=== PATIENT | male | born 1990 ===

== ENCOUNTER 2021-11-16 08:15 | Outpatient (RCR) | payer OTHER, SELFPAY ==
[2021-11-09 12:29] VITALS: BMI 20.7
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
--- NOTE | 2021-11-12 14:59 | PC.NURSE ---
Case opened in treatment team
--- NOTE | 2021-11-14 09:47 | PC.NURSE ---
I called outsole caser and made appointments for outpatient providers
--- NOTE | 2021-11-14 14:22 | P.PNPSP_ITS ---
Subjective Subjective Date of Service: 11/14/21 Reason For Visit: MDD, substance use Guardianship: No Medical Problems Affecting Mental Status: No Interim History: Patient describes mood as ?elated ?. States has had a good morning, received positive news regarding a friends substance use recovery. Denies any SI/HI, no safety concern. Reports continued abstinence for over 1 month at this point. Reports the increased Wellbutrin is helping to lift depression symptoms. Complains of sexual side effects from medications. Medication Compliance: Yes Side effects from medications: Yes (ED, constipation) Attending Groups: Yes Review of Systems Acute medical concerns: No Medical Review of Systems: changed Review of Systems Review of Systems Yes all other systems are reviewed and are negative Constitutional: Reports no additional constitutional complaints Eyes: Reports no additional eye complaints Reports Normal hearing present Cardiovascular: Reports no additional cardiovascular complaints Respiratory: Reports no additional respiratory complaints Gastrointestinal: Reports constipation Genitourinary: Reports no additional male genitourinary complaints and Reports change in libido (lowered libido and ED) Musculoskeletal: Reports no additional musculoskeletal complaints Reports Normal hearing present Psychiatric: Reports change in libido (lowered libido and ED) Endocrine: Reports change in libido (lowered libido and ED) Mental Status Exam Mental Status Exam Narrative: Well-developed, thin male, in NAD. Did not appear to be responding to any type of internal stimuli. Passive SI, no intent or plan. Did not appear to be under the influence of any substances, no withdrawals reported or observed. Patient Appearance: Well Grooomed and Appropriate Patient Orientation: Person, Place, Time and Situation Level of Consciousness: Awake, Appropriate and Alert Patient Behavior: Appropriate, Cooperative and Good Eye Contact Mood Description: Happy and Elated Affect Description: Anxious Patient Cognition Impaired: No Ability to Follow Directions: Excellent Speech Pattern: Clear, Appropriate and Coherent Memory Description: Intact Hallucinations: None Delusions: Not Present Thought Process: Intact Thought Content: positive for Intact Depressive Symptoms: Increased Anxiety, Muscle Tension, Feelings of Guilt, Increased Fatigue and Low Self Esteem Judgement: Fair Diagnostics Vital Signs (24Hr): BMI result Body Mass Index 20.7 Assessment & Plan Assessment & Plan (1) Major depressive disorder, recurrent, severe with psychotic symptoms: Status: Acute Code(s): F33.3 - Major depressive disorder, recurrent, severe with psychotic symptoms Assessment and Plan: Patient reports feeling ?elevated mood ?today. He states he is in no way manic or hypomanic, but it is due to receiving information this morning that a close friend of his has been sober for the past 5 months. He describes his emotions as ?trying to even out ?. He states that he feels his mood is improving, in part due to the increased Wellbutrin. He states that he was depressed for over a month, and that he is finally starting to feel his depression is lifting. Denies any thought of harm to self or others, no safety concerns at this time. Discussed medications in depth, including side effects, risks and benefits of each medication. Patient is requesting to stay on current doses of all psychiatric medications, but would like something to help with erectile dysfunction at this time. He also reports that the medications are causing constipation, requesting stool softener. Plan is to trial tadalafil and colace over next week, and monitor for efficacy as well as side effects. (2) Alcohol use disorder, severe, dependence: Status: Acute Code(s): F10.20 - Alcohol dependence, uncomplicated Assessment and Plan: Patient reports he has been abstinent from alcohol and all other substances for over 1 month at this time. (3) Opioid use disorder, severe, dependence: Status: Acute Code(s): F11.20 - Opioid dependence, uncomplicated (4) Cocaine use disorder, severe, dependence: Status: Acute Code(s): F14.20 - Cocaine dependence, uncomplicated (5) Methamphetamine use disorder, severe: Status: Acute Code(s): F15.20 - Other stimulant dependence, uncomplicated Plan 1. Continue with current [facility] plan of care. 2. tadalafil 5mg, 5 tab supply ordered. 3. Colace 100 mg daily ordered. 4. Continue all other medications as prescribed currently. 5. Follow-up as per protocol. Patient educated on: diagnosis, medication risk/benefits, substance abuse, therapeutic strategies and medical condition Informed Consent: understands Reason for contiued partial hosp. stay Substantial Risk for: harm to self, inability to function and med/psych decompensation Certification I certify that partial hospital treatment is medically necessary due to the symptoms and problems resulting from the patient's mental illness and the failure to treat the patient at the partial hospital level of care would likely result in the patient requiring inpatient psychiatric care which could not be prevented at a less intensive level of care. I spent ___30___ minutes with the patient and/or on the patient floor today, greater than?50% of which was spent counseling/coordinating care. Discharge Plan Discharge Attending provider: Rogerio Reyes Additional Instructions: Intake appointment for therapist and prescriber at [facility] with Blanka 11/27/21 @ 10 am Medications: New bupropion HCl [Wellbutrin XL] 300 mg tablet extended release 24 hr 300 mg PO QAM 14 Days Qty: 14 0RF docusate sodium [Colace] 100 mg capsule 100 mg PO DAILY 7 Days Qty: 7 0RF tadalafil 5 mg tablet 5 mg PO DAILY MDD 5mg PRN (Reason: sexual activity) Qty: 5 0RF Rx Instructions: administer approximately 30min before sexual activity; do not use more than 1 dose per 24hrs Discontinued bupropion HCl 150 mg Tablet Extended Release 24 Hr 150 mg PO QAM 0RF No Action hydroxyzine HCl 50 mg Tablet 50 mg PO DAILY PRN (Reason: Anxiety) 0RF nicotine 21 mg/24 hr Patch 24 Hour 1 patch TRANSDERMAL DAILY 0RF prazosin 2 mg Capsule 2 mg PO BEDTIME 0RF emtricitabine-tenofovir (TDF) 200-300 mg Tablet 1 tab PO DAILY 0RF quetiapine 50 mg Tablet 50 mg PO BEDTIME PRN (Reason: Insomnia) 0RF melatonin 5 mg Tablet 5 mg PO BEDTIME 0RF baclofen 5 mg Tablet 5 mg PO BID PRN (Reason: Muscle Spasm) 0RF Stand Alone Forms: Patient Portal Discharge page Telehealth Telehealth Location of provider rendering services: practice address Location of patient: address on file Patient Identification confirmed using: Name, : Yes Telehealth method: video Patient verbally consented to treatment: Yes Patient informed of any privacy concerns related to visit: Yes Time spent with patient (mins): 20
--- NOTE | 2021-11-15 13:14 | PC.NURSE ---
Patient asking for staff assistance in finding a PCP. Called [facility] and was told that patient is already in the system as he had an appointment with Dr Lopez in June however patient missed the appointment. Dr Lopez is listed as patient's PCP on his insurance as well. Appointment made with Dr Lopez from [facility] on December 27, 2021 at 0830. See discharge paperwork. Informed patient of the appointment. Patient wrote down the information however patient reports he would like an earlier appointment and will call [facility] to try and get an earlier appointment.
--- NOTE | 2021-11-15 13:17 | PC.NURSE ---
I called the client to assess need for crisis intervention because he shared that he was experiencing suicidal thoughts. During our phone conversation he explained that he often has suicidal thoughts on his down days although he does not have a plan or intent. We reviewed his written safety plan and he denied any thoughts while we were talking. He states that he will keep to his plan for structure today . His plan is to take a nap after group, then shower, eat, go to [facility] to get his prescription and then he will work from 5-10. He states that he enjoys work and often feels better after work. He has the number for crisis and states that he will call if needed although he states that he will be safe.
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
--- NOTE | 2021-11-19 14:21 | PC.NURSE ---
I called the client . When he did not answer I called his mother, Cici Lanza to request that Cornelio give me a call. She did not answer either and I left a message.
--- NOTE | 2021-11-19 14:43 | PC.NURSE ---
I called and spoke with the client about going to the lab for blood work. He said okay and I told him that I would call right back once I made sure the lab slip was faxed to the lab. When I called back he did not answer his phone and I called his mother she said she would have him call me. When he did not call back, I again called and left a message on his mothers phone for him to call.
--- NOTE | 2021-11-20 09:21 | PC.NURSE ---
I phoned the clients mother this morning when the client did not come to community meeting. She states that the client can not participate in group because his phone is broken and he is going to get it fixed today She states that he will be in tomorrow
--- NOTE | 2021-11-21 14:53 | PC.NURSE ---
I spoke with the clients mother Cici ruiz to relay message to client to remind him of the intake appointment set for November and number to call if he needs to change time.
--- NOTE | 2021-12-04 11:11 | PC.NURSE ---
Patient administratively discharged from the program on 11/16/21. Patient called and left a message on 12/04/21 asking for prescription refills. Stated his phone broke and he did not have access to the internet. Myrna Bosch NP is aware, patient message also forwarded to Myrna Bosch NP on 12/04/21.
--- NOTE | 2021-12-04 13:00 | PC.NURSE ---
Spoke to patient regarding medication refills today. Patient reports he missed his intake appointment on 11/27/21 with [facility] OPERATOR. Last prescription for Wellbutrin was sent electronically to the pharmacy on 11/09/21 for 14 day supply. Patient reports he just ran out of his medications. Asked why patient did not call sooner and he stated his phone broke and did not have internet access. I let him know that I spoke to the prescriber and she did not feel comfortable with refilling his medications at this time. Let patient know he could go to the ER if needed and they could assess his medication needs. Patient hung up the phone on this public relations writer. Patient attended the program for 5 days and was administratively discharged from the program. In addition, patient did not complete the requested MENDEZ. Helmet Hat Puncher Vandana Aguila is aware.
== END 2021-11-21 23:59 | disposition home or self-care (01) ==
LOC: HO.PHPA 08:15
PROVIDERS: Visit Provider Psychiatry & Neurology Psychiatry
DX: F33.3 Major depressive disorder, recurrent, severe with psychotic symptoms (principal); F10.20 Alcohol dependence, uncomplicated; F11.20 Opioid dependence, uncomplicated; F14.20 Cocaine dependence, uncomplicated; F15.20 Other stimulant dependence, uncomplicated; F16.10 Hallucinogen abuse, uncomplicated; Z79.899 Other long term (current) drug therapy
CPT/HCPCS: 90791; 90853